=== PATIENT | female | born 1995 | race Caucasian/White ===

== ENCOUNTER 2021-08-02 08:38 | Outpatient (REF) | payer OTHER, SELFPAY ==
[2021-08-02 08:58] LABS: MANUAL DIFF FLAG NO
[2021-08-02 09:11] LABS: Basophils Absolute Auto 0.1 X10*3/uL (0.0-0.2); Basophils Percent Auto 0.8 % (0-2); Eosinophils Absolute Auto 0.1 X10*3/uL (0.0-0.4); Eosinophils Percent Auto 1.9 % (0-4); Hematocrit 32.7 % (37.0-47.0); Hemoglobin 9.6 g/dl (12.0-16.0); Imm Gran Abs Auto 0.02 X10*3/uL (0.00-0.03); Imm Gran Pct Auto 0.3 % (0.0-0.4); Lymphocytes Absolute Auto 1.8 X10*3/uL (1.2-4.9); Lymphocytes Percent Auto 29.7 % (20-40); Mean Corpuscular HGB Conc 29.4 g/dl (31.0-35.0); Mean Corpuscular Hemoglobin 21.3 pg (27.0-33.0); Mean Corpuscular Volume 72.5 fL (80.0-98.0); Mean Platelet Volume 9.8 fL (9.4-12.3); Monocytes Absolute Auto 0.6 X10*3/uL (0.1-1.2); Monocytes Percent Auto 9.4 % (2-11); Neutrophils Absolute Auto 3.6 x10*3/uL (2.0-8.3); Neutrophils Percent Auto 57.9 % (45-73); Platelet Count 333 X10*3/uL (160-400); Red Blood Count 4.51 X10*6/uL (4.20-5.50); Red Cell Distribution Width 16.2 % (11.0-16.0); White Blood Count 6.2 X10*3/uL (4.8-10.8)
[2021-08-02 09:33] LABS: Alanine Aminotransferase 14 U/L (0-31); Albumin Level 4.3 g/dL (3.5-5.0); Alkaline Phosphatase 60 U/L (39-117); Anion Gap 14 (12-20); Aspartate Amino Transferase 15 U/L (5-31); Bilirubin Total 0.9 mg/dL (0.0-1.0); Blood Urea Nitrogen 11 mg/dL (9-16); Calcium 9.7 mg/dL (8.4-10.2); Carbon Dioxide 25 mmol/L (22-29); Chloride 104 mmol/L (96-108); Cholesterol 161 mg/dL; Estimated Glomerular Filt Rate > 60; Glucose Random 93 mg/dL (60-115); HDL Cholesterol 38 mg/dL; LDL Cholesterol Calculated 104 mg/dl; Potassium 4.7 mmol/L (3.3-5.1); Sodium 138 mmol/L (135-145); Total Protein 6.9 g/dL (6.5-8.0); Triglycerides 95 mg/dL
[2021-08-02 09:56] LABS: Thyroid Stimulating Hormone 0.79 uIU/mL (0.32-4.0); Vitamin D 25-OH Total 5.4 ng/mL (>30)
[2021-08-04 10:05] LABS: Folate 14.2 ng/mL (> or = 4.0); Vitamin B12 340 pg/mL (200-900)
== END 2021-08-02 08:39 | disposition home or self-care (01) ==
LOC: HO.LAB 08:38
PROVIDERS: PCP Internal Medicine; Visit Provider Internal Medicine
DX: E66.9 Obesity, unspecified (principal); E78.00 Pure hypercholesterolemia, unspecified
CPT/HCPCS: 36415; 80053; 80061; 82306; 82607; 82746; 84439; 84443; 85025

== ENCOUNTER 2021-10-24 15:48 | Outpatient (REF) | payer OTHER, SELFPAY ==
[2021-10-24 18:18] LABS: CT PCR NOT DETECTED (Not Detect.); NG PCR NOT DETECTED (Not Detect.)
[2021-10-25 10:08] LABS: BV Int Neg Control Negative (Negative); BV Int Pos Control Positive (Positive)
== END 2021-10-24 15:49 | disposition home or self-care (01) ==
LOC: HO.LAB 15:48
PROVIDERS: Visit Provider Advanced Practice Midwife
DX: Z01.419 Encounter for gynecological examination (general) (routine) without abnormal findings (principal); N93.9 Abnormal uterine and vaginal bleeding, unspecified; E66.01 Morbid (severe) obesity due to excess calories; N92.1 Excessive and frequent menstruation with irregular cycle; Z11.3 Encounter for screening for infections with a predominantly sexual mode of transmission
CPT/HCPCS: 87480; 87491; 87510; 87591; 87660; 88142

== ENCOUNTER 2021-12-06 07:40 | Outpatient (REF) | payer OTHER, SELFPAY ==
[2021-12-06 08:44] LABS: Hematocrit 38.4 % (37.0-47.0); Hemoglobin 12.3 g/dl (12.0-16.0); Mean Corpuscular Hemoglobin 25.8 pg (27.0-33.0); Mean Corpuscular Volume 80.7 fL (80.0-98.0); Mean Platelet Volume 10.5 fL (9.4-12.3); Platelet Count 267 X10*3/uL (160-400); Red Blood Count 4.76 X10*6/uL (4.20-5.50); Red Cell Distribution Width 19.8 % (11.0-16.0); White Blood Count 6.4 X10*3/uL (4.8-10.8)
[2021-12-06 09:29] LABS: TSH reflex Free T4 1.08 uIU/mL (0.32-4.0)
[2021-12-08 08:17] LABS: DHEA Sulfate 112 mcg/dL (14-349)
[2021-12-08 10:27] LABS: Follicle Stimulating Hormone 7.5 mIU/mL; Lutenizing Hormone 5.2 mIU/mL; Prolactin 7.7 ng/mL
[2021-12-12 08:56] LABS: Testosterone, Total 21 ng/dL (2-45)
== END 2021-12-06 07:41 | disposition home or self-care (01) ==
LOC: HO.LAB 07:40
PROVIDERS: PCP Internal Medicine; Visit Provider Advanced Practice Midwife
DX: N93.9 Abnormal uterine and vaginal bleeding, unspecified (principal); E66.01 Morbid (severe) obesity due to excess calories; N92.1 Excessive and frequent menstruation with irregular cycle
CPT/HCPCS: 36415; 82627; 83001; 83002; 84146; 84402; 84403; 84443; 85027

== ENCOUNTER 2021-12-11 11:16 | Outpatient (REF) | payer OTHER, SELFPAY ==
--- NOTE | ~2021-12-11 | US_ITS ---
EXAMINATION: US PELVIS CLINICAL INFORMATION: Excessive and frequent menstruation with irregular cycles. COMPARISON: None TECHNIQUE: Ultrasound of the pelvis is performed using both transabdominal and transvaginal transducers along with Doppler. Transvaginal imaging is performed due to inadequate visualization transabdominally, however limited. FINDINGS: UTERUS: The uterus is anteverted and measures 8.7 x 4.1 x 5.8 cm. The double wall endometrial thickness is 1.4 cm. The uterus is smooth in contour and has normal myometrial echogenicity. There is a small hypoechoic lesion in the posterior body of uterus measuring 1.7 x 1.1 x 1.4 cm. There are multiple small nabothian cysts in the cervix. ADNEXA: Both ovaries are visualized. There is normal color flow to the adnexa. There is no ovarian torsion. There is no pelvic ascites or fluid collection. Right ovary measures 4.5 x 3.0 x 2.3 cm and volume 16.2 mL. Left ovary measures 5.2 x 2.5 x 2.9 cm and volume 19.7 mL. There is no free fluid in the cul-de-sac. The transvaginal ultrasound limited due to body habitus. US/US pelvic and transvaginal IMPRESSION: Small nabothian cysts in the cervix. Small solitary fibroid in the posterior body of uterus. Ovaries are unremarkable.
== END 2021-12-11 11:17 | disposition home or self-care (01) ==
LOC: HO.US 11:16
PROVIDERS: Visit Provider Advanced Practice Midwife
DX: N92.1 Excessive and frequent menstruation with irregular cycle (principal); E66.9 Obesity, unspecified
CPT/HCPCS: 76830; 76856

== ENCOUNTER 2021-12-19 16:51 | Outpatient (REF) | payer OTHER, SELFPAY | END 2021-12-19 16:52 | disposition home or self-care (01) | LOC: HO.LNP 16:51 | PROVIDERS: PCP Internal Medicine; Visit Provider Advanced Practice Midwife | DX: N92.1 Excessive and frequent menstruation with irregular cycle (principal); E66.01 Morbid (severe) obesity due to excess calories; D21.9 Benign neoplasm of connective and other soft tissue, unspecified; Z83.3 Family history of diabetes mellitus; Z79.899 Other long term (current) drug therapy; Z32.02 Encounter for pregnancy test, result negative; Z68.42 Body mass index [BMI] 45.0-49.9, adult | CPT/HCPCS: 58100; 81025; 88305 ==

== ENCOUNTER 2022-04-21 08:55 | Outpatient (REF) | payer OTHER, SELFPAY | END 2022-04-21 08:56 | disposition home or self-care (01) | LOC: HO.LNP 08:55 | PROVIDERS: PCP Internal Medicine; Visit Provider Advanced Practice Midwife | DX: Z12.4 Encounter for screening for malignant neoplasm of cervix (principal); R87.615 Unsatisfactory cytologic smear of cervix | CPT/HCPCS: 88142 ==

== ENCOUNTER 2022-10-26 08:56 | Outpatient (AMB) | payer OTHER, SELFPAY ==
[2022-10-26 08:58] VITALS: BP 150/90; BMI 45.0
--- NOTE | 2022-10-26 08:58 | A.OFFVIS_ITS ---
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: No Allergies No Known Allergies Allergy (Verified 10/26/22 09:02) Medication List - Last Reconciled 10/26/22 by Stephany Hoff CNM ascorbate calcium (vitamin C) 500 mg PO DAILY cholecalciferol (vitamin D3) 125 mcg PO DAILY desog-e.estradiol/e.estradiol 0.15-0.02 mgx21 /0.01 mg x 5 1 tab PO DAILY ferrous gluconate 236 mg PO DAILY Is last menstrual period known: Yes Last menstrual period: 10/23/22 Post menopausal: No HPI Pill Check HPI Details Patient is here for a pill check she has been taking the pills to deal with the menorrhagia and for the most part it has been contributing to her having very regular periods she is on a Wednesday start with her cycles and she typically gets her periods on a although this last week it started on Wednesday she is still on her period now they last about 5 days. She is not having any symptoms of elevated blood pressure however her blood pressure is elevated today 140/[address] Spaulding most recently in July and her pressure was in the 120s over 88. She currently does not have the diagnosis of hypertension however she has had elevated blood pressures. She would like to stay on the pills to help manage her menorrhagia that she is has had in the past. 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 She has stairs in her house but that is really all she had a gym membership pre COVID but COVID ended that money is a factor as well. She also does not will do well in the heat and her schedules very tight in the morning and difficult to allow for morning exercise as well. She is not sexually active but she needs the pills to help manage her periods. [facility] Medical History Cervical cancer screening Family History Mother No problems noted. Father Heart attack Sister No problems noted. Paternal Aunt Endometriosis Maternal Uncle Colon cancer Social History Housing: Condominium Alcohol intake: current Patient Tobacco Use Status: Never used Tobacco e-Cigarette/Vaping Use: Never Used Second Hand Smoke Exposure: No service: No Current occupational status: employed Current occupational exposures/hazards: No Cognitive needs: No Hearing needs: No Vision needs: Yes Female Reproductive History Menstrual Age of Menarche: 12 Duration of menses: 3-5 days Date of last menstrual period: 10/23/22 control method: pills Total pregnancies: 0 Date of last pap smear: 04/21/22 (negative) Physical Exam Vital Signs: Last Vital Signs BP 150/90 H 10/26/22 08:58 BMI result Body Mass Index 45.0 Assessment & Plan Assessment & Plan (1) Elevated BP without diagnosis of hypertension: Comment: to check at home and w pcc. rtc 6m Code(s): R03.0 - Elevated blood-pressure reading, without diagnosis of hypertension (2) Fibroids: Comment: 1 small one Code(s): D21.9 - Benign neoplasm of connective and other soft tissue, unspecified (3) Family history of diabetes mellitus (DM): Code(s): Z83.3 - Family history of diabetes mellitus (4) Obesity, morbid, BMI 40.0-49.9: Comment: 04/21/22-making gradual changes, has lost some weight Code(s): E66.01 - Morbid (severe) obesity due to excess calories (5) Menometrorrhagia: Comment: emb- no atypia, managing well on ocps 04/21/22 Code(s): N92.1 - Excessive and frequent menstruation with irregular cycle (6) Counseling for control, oral contraceptives: Comment: Plus counseling for use of Mirena, secondary to elevated blood pressure Code(s): Z30.09 - Encounter for other general counseling and advice on contraception Plan Discussed all of these issues again that have been addressed at previous visits discussed the interplay of the obesity and the increased risk for the hypertension which she is definitely dealing with. Discussed that she does need something to help protect from menorrhagia so that she does not repeat the scenario that her here in the 1st place however long-term use of the control pills may not be the best for her but more importantly it is really important for her to sit start actively losing weight discussed during this visit strategies that might help to add in more exercise and I offered to place another weight management referral for her and she excepted this as the previous referral was a year ago. She had been told there was a waiting list at that time she is reluctant to do surgery and she said there was a waiting list for the medical part. She is also reluctant to do anything very invasive but I did explain about the Mirena versus the Kyleena and how it may at least help with the menorrhagia piece of it, and can be used for women with elevated blood pressures and is often used for menorrhagia in the face of obesity as well. If she decided to try it either 1 but probably a Mirena it would be best to inserted on the heaviest day of her cycle which typically for her is day 3. I also discussed use of misoprostol for 4-6 hours vaginally prior to insertion and I explained the rationale for both of these issues with timing to visit facilitate the cramping that happens and the slight opening of the cervix enough to make the insertion less traumatic. Much of the visit was spent discussing ways that might be accessible to her. Today is her birthday discussed starting a new. She is going to go to the mall today suggested a very brisk walk around the mall before she settles into window shopping and then she is going to visit a friend. cont ocps for now. she will check her bp, and we'll see her in 3 m unless she comes for mirena / kyleena w menses. Reviewed the issues of hypertension with control pills and the issues of hypertension in her health overall and that this is really the time to try to d eal with this. Orders: Referrals Medical Weight Management Referral D21.9 - Benign neoplasm of connective and other soft tissue, unspecified, E66.01 - Morbid (severe) obesity due to excess calories, N92.1 - Excessive and frequent menstruation with irregular cycle, R03.0 - Elevated blood-pressure reading, without diagnosis of hypertension, Z30.09 - Encounter for other general counseling and advice on contraception, Z83.3 - Family history of diabetes mellitus Coding Level of Care Code Est Pt Level 3 (05397) Diagnoses Elevated BP without diagnosis of hypertension R03.0 Fibroids D21.9 Family history of diabetes mellitus (DM) Z83.3 Obesity, morbid, BMI 40.0-49.9 E66.01 Menometrorrhagia N92.1 Counseling for control, oral contraceptives Z30.09
== END 2022-10-26 09:53 | disposition home or self-care (01) ==
LOC: HO.HWS 08:56
PROVIDERS: PCP Internal Medicine; Visit Provider Advanced Practice Midwife
DX: R03.0 Elevated blood-pressure reading, without diagnosis of hypertension (principal); D21.9 Benign neoplasm of connective and other soft tissue, unspecified; Z83.3 Family history of diabetes mellitus; E66.01 Morbid (severe) obesity due to excess calories; N92.1 Excessive and frequent menstruation with irregular cycle; Z30.09 Encounter for other general counseling and advice on contraception
CPT/HCPCS: 99213

== ENCOUNTER → 2022-10-26 08:56 | Outpatient (BNVA) | payer OTHER, SELFPAY | PROVIDERS: PCP Internal Medicine; Visit Provider Advanced Practice Midwife ==

== ENCOUNTER 2023-02-23 14:21 | Outpatient (AMB) | payer OTHER, SELFPAY ==
--- NOTE | 2023-02-23 14:28 | A.OFFVIS_ITS ---
Intake Vital Signs 02/23/23 14:29 Height 5 ft 8 in Weight 302 lb BMI 45.9 BP 126/82 Intake Visit Reasons: 3 month pill check/bp check [employer] Required: No Allergies No Known Allergies Allergy (Verified 02/23/23 14:29) Medication List - Last Reconciled 02/23/23 by Stephany Hoff CNM ascorbate calcium (vitamin C) 500 mg PO DAILY cholecalciferol (vitamin D3) 125 mcg PO DAILY desog-e.estradiol/e.estradiol 0.15-0.02 mgx21 /0.01 mg x 5 1 tab PO DAILY ferrous gluconate 236 mg PO DAILY Is last menstrual period known: Yes Last menstrual period: 02/12/23 Post menopausal: No HPI 3 month pill check/bp check HPI Details Patient is here for blood pressure check and discussion about continuing on the control pills she is not interested in a Mirena at this time she has been keeping an eye on her blood pressure and it has been up and down but it is good today. She is following up with her primary care provider as well and has her next visit with him in May. She has been referred to the weight management program but every time she calls she was told that there was still a waiting list for people interested in the medical management but not particularly interested in the surgical management. She is finding it challenging to get to the gym more than once a week and she is really working hard on eating but that is challenging because she and her mother share food in the house and it is challenging. Her father had diabetes and high blood pressure. Her periods are under good control now with the control pills she denies any negative side effects to the pills. She is worried about bad things happening with an IUD if she were to get 1 so she is not interested at this time. [facility] Medical History Cervical cancer screening Family History Mother No problems noted. Father Heart attack Sister No problems noted. Paternal Aunt Endometriosis Maternal Uncle Colon cancer Housing: Condominium Alcohol intake: current Patient Tobacco Use Status: Never used Tobacco e-Cigarette/Vaping Use: Never Used Second Hand Smoke Exposure: No service: No Current occupational status: employed Current occupational exposures/hazards: No Cognitive needs: No Hearing needs: No Vision needs: Yes Female Reproductive History Menstrual Age of Menarche: 12 Date of last menstrual period: 02/12/23 control method: pills Date of last pap smear: 04/21/22 (negative) Physical Exam Vital Signs: Last Vital Signs BP 126/82 02/23/23 14:29 BMI result Body Mass Index 45.9 Assessment & Plan Assessment & Plan (1) Counseling for control, oral contraceptives: Comment: Plus counseling for use of Mirena, secondary to elevated blood pressure Code(s): Z30.09 - Encounter for other general counseling and advice on contraception (2) Menometrorrhagia: Comment: emb- no atypia, managing well on ocps 04/21/22 Code(s): N92.1 - Excessive and frequent menstruation with irregular cycle (3) Obesity, morbid, BMI 40.0-49.9: Comment: 04/21/22-making gradual changes, has lost some weight Code(s): E66.01 - Morbid (severe) obesity due to excess calories (4) Elevated BP without diagnosis of hypertension: Comment: to check at home and w pcc. rtc 6m Code(s): R03.0 - Elevated blood-pressure reading, without diagnosis of hypertension Plan Patient is here for blood pressure check and discussion about continuing on the control pills she is not interested in a Mirena at this time she has been keeping an eye on her blood pressure and it has been up and down but it is good today. She is following up with her primary care provider as well and has her next visit with him in May. She has been referred to the weight management program but every time she calls she was told that there was still a waiting list for people interested in the medical management but not particularly interested in the surgical management. She is finding it challenging to get to the gym more than once a week and she is really working hard on eating but that is challenging because she and her mother share food in the house and it is challenging. Her father had diabetes and high blood pressure. Her periods are under good control now with the control pills she denies any negative side effects to the pills. She is worried about bad things happening with an IUD if she were to get 1 so she is not interested at this time. Reviewed what she can do to improve her efforts at weight loss and make herself her priority and increase her visits to the gym if at all possible. I will refill her pills for 1 more year and she promises to be in touch if her blood pressure is elevated and I did discuss that Mirena would be recommended to help control menorrhagia if she were not able to be on the pills I would not recommend Depo-Provera or the a Nexplanon because they come with increased weight gain side effects discussed the hormonal effects of them. Discussed considering reaching out to the weight management program again and she is going to head over there now and see if there still is a waiting list. We will see her in 1 year if not before. Medications: Refilled desog-e.estradiol/e.estradiol 0.15-0.02 mgx21 /0.01 mg x 5 1 tab PO DAILY 84 tabs 4RF Coding Level of Care Code Est Pt Level 3 (13101) Diagnoses Counseling for control, oral contraceptives Z30.09 Menometrorrhagia N92.1 Obesity, morbid, BMI 40.0-49.9 E66.01 Elevated BP without diagnosis of hypertension R03.0
[2023-02-23 14:29] VITALS: BP 126/82; BMI 45.9
== END 2023-02-23 14:55 | disposition home or self-care (01) ==
LOC: HO.HWS 14:21
PROVIDERS: PCP Internal Medicine; Visit Provider Advanced Practice Midwife
DX: Z30.09 Encounter for other general counseling and advice on contraception (principal); N92.1 Excessive and frequent menstruation with irregular cycle; E66.01 Morbid (severe) obesity due to excess calories; R03.0 Elevated blood-pressure reading, without diagnosis of hypertension
CPT/HCPCS: 99213

== ENCOUNTER → 2023-02-23 14:21 | Outpatient (BNVA) | payer OTHER, SELFPAY | PROVIDERS: PCP Internal Medicine; Visit Provider Advanced Practice Midwife ==

== ENCOUNTER 2023-05-20 14:58 | Outpatient (AMB) | payer OTHER, SELFPAY ==
[2023-05-20 15:19] VITALS: BP 132/88; PULSE 72; O2SAT 98; BMI 45.8
--- NOTE | 2023-05-20 15:19 | A.OFFPC_ITS ---
Vital Signs 05/20/23 15:19 05/20/23 15:53 Height 5 ft 8 in Weight 136.531 kg BMI 45.8 BP 132/88 130/80 Blood Pressure Location Lt brachial Lt brachial Position Sitting Sitting Pulse 72 Pulse Source Pulse Oximeter Pulse Oximetry (%) 98 Oxygen Delivery Method Room Air Intake Visit Reasons: Annual Exam Pacu Nurse: Not Required per policy Accompanied by: Self / Same As Patient Allergies No Known Allergies Allergy (Verified 05/20/23 15:19) Medication List - Last Reconciled 05/20/23 by Ady Cisneros MD ascorbate calcium (vitamin C) 500 mg PO DAILY cholecalciferol (vitamin D3) 125 mcg PO DAILY desog-e.estradiol/e.estradiol 0.15-0.02 mgx21 /0.01 mg x 5 1 tab PO DAILY ferrous gluconate 236 mg PO DAILY Tobacco use date assessed: 05/20/23 Dental Screening Dental Screen Date: 05/20/23 Did you have a dental visit in the last 12 months?: Yes Did you have a dental problem in the last 6 months where you did not have access to dental care?: No Was dental information given to patient?: Patient has dentist HPI Annual Exam HPI Details 27-year-old morbidly obese female with g eneralized anxiety disorder and menometrorrhagia last seen in July 2022 coming in for physical exam. Patient was also noted to have an elevated blood pressure. Patient has been seeing OB Gynecology placed o control pill. [facility] Medical History Cervical cancer screening Surgical History (Updated 05/20/23 @ 15:51 by Ady Cisneros MD) [place] teeth extracted Family History Mother No problems noted. Father Heart attack Sister No problems noted. Paternal Aunt Endometriosis Maternal Uncle Colon cancer Social History (Updated 05/20/23 @ 15:55 by Ady Cisneros MD) Housing: Condominium Alcohol intake: current Comment: once Q 6 month 1 glass Patient Tobacco Use Status: Never used Tobacco Years Smoked: marijuana daily e-Cigarette/Vaping Use: Never Used Second Hand Smoke Exposure: No service: No Current occupational status: employed Current occupational exposures/hazards: No Cognitive needs: No Hearing needs: No Vision needs: Yes Female Reproductive History Menstrual Age of Menarche: 12 Questionnaire PHQ-9 Over the last 2 weeks, how often have you been bothered by any of the following problems? 1. Little interest or pleasure in doing things: nearly every day 2. Feeling down, depressed, or hopeless: nearly every day 3. Trouble falling or staying asleep, or sleeping too much: several days (staying asleep ) 4. Feeling tired or having little energy: several days 5. Poor appetite or overeating: not at all 6. Feeling bad about yourself - or that you are a failure or have let yourself or your family down: several days 7. Trouble concentrating on things, such as reading the newspaper or watching television: several days 8. Moving or speaking so slowly that other people could have noticed. Or the opposite - being so fidgety or restless that you have been moving around a lot more than usual: not at all 9. Thoughts that you would be better off or of hurting yourself in some way: several days Total score: 11 Depression Screening Interpretation: Positive Depression Screening Done: Yes Source: Developed by Drs. Chente Dixon, Nadia Trevino, Adair Rosas and colleagues, with an educational carlos from [employer]. Thrive Questionnaire Date Thrive assessed: 05/20/23 I am a: Patient What is your living situation today?: I have a steady place to live Within the past 12 months, did the food you bought not last and you didn't have the money to get more?: Never true Within the past 12 months, did you worry whether your food would run out before you got money to buy more?: Never true Do you have trouble paying for medicines?: No Do you have trouble getting transportation to medical appointments?: No Do you have trouble paying your heating and electricity bill?: No Do you have trouble taking care of your child, family member or friend?: No Do you have trouble with day-to-day activities such as bathing, preparing meals, shopping, managing finances, etc.?: No Are you currently unemployed and looking for a job?: No Are you interested in more education?: No Please select the resources that you would like help with: None THRIVE Score: 0 AUDIT C Alcohol Use Questionnaire (AUDIT-C) 1. How often do you have a drink containing alcohol?: Monthly or less 2. How many drinks containing alcohol do you have on a typical day when you are drinking?: 1 or 2 3. How often do you have six or more drinks on one occasion?: Never Total Score: 1 ASTER-7 AMB Questionnaire ASTER-7 Date ASTER - 7 assessed: 05/20/23 Feeling nervous, anxious, or on edge: 0 = Not at all Not being able to stop or control worryin = Not at all Worrying too much about different things: 0 = Not at all Trouble relaxin = Not at all Being so restless that it is hard to sit still: 0 = Not at all Becoming easily annoyed or irritable: 0 = Not at all Feeling afraid as if something awful might happen: 0 = Not at all Total ASTER-7 score (0-4 normal; 5-9 mild; 10-14 moderate; 15-21 severe): 0 Source: Developed by Drs. Chente Dixon, Nadia Trevino, Adair Rosas and colleagues, with an educational carlos from [employer]. Review of Systems Const Denies poor appetite and Denies weakness Eyes Denies no additional complaints ENT Reports Normal hearing present, Denies dizziness, Denies nasal congestion, Denies tinnitus and Denies sore throat Card Denies chest pain, Denies syncope, Denies rapid heart rate and Denies dyspnea Resp Denies cough and Denies dyspnea GI Denies change in stool character, Reports constipation, Denies diarrhea, Denies nausea and Denies vomiting Denies urinary frequency, Denies difficulty voiding and Denies dysuria Neuro Reports Normal hearing present, Denies confusion, Denies dizziness, Denies syncope and Denies weakness Psych Denies confusion Physical exam (Primary Care) Vital Signs: Last Vital Signs Pulse 72 05/20/23 15:19 BP 130/80 05/20/23 15:53 Pulse Ox 98 05/20/23 15:19 Oxygen Delivery Method Room Air 05/20/23 15:19 BMI result Body Mass Index 45.8 Tobacco/Smoking Status: Tobacco use Status Tobacco use date assessed 05/20/23 05/20/23 15:20 Patient Tobacco Use Status Never used Tobacco 05/20/23 15:55 e-Cigarette/Vaping Use Never Used 05/20/23 15:55 PHQ-9: PHQ-9 Score PHQ-9: Total score 11 05/20/23 15:49 Depression Screening Interpretation: Positive Thrive Assessment: Date of Thrive Assessment Date Thrive assessed 05/20/23 05/20/23 15:20 Const General: No confusion Orientation/consciousness: No confusion HENMT Head: Yes normocephalic Ears: external ears normal and TM's normal bilaterally Face and sinus: Yes normal facial exam Mouth: moist mucous membranes Throat: Yes tonsils normal Eyes Conjunctivae: conjunctivae normal Pupils: Equal, round and reactive pupils present and Pupil accommodation reflex normal Direct Ophthalmoscopy: normal light reflex Neck Neck: No lymphadenopathy Thyroid: Thyroid normal Chest Chest palpation & inspection: normal inspection of the chest Resp Effort & Inspection: normal respiratory effort and no audible wheezes Auscultation: clear to auscultation bilaterally, no crackles, no wheezes and lung sounds not diminished Cardio Rate: regular rate Rhythm: regular rhythm Peripheral pulses: radial pulses present and dorsalis pedis present GI Palpation (GI): no masses Auscultation: normal bowel sounds and normoactive bowel sounds Rectal Exam - Female: deferred Skin General skin exam: no rashes or lesions noted Rashes: no rashes Neuro General: No confusion Cranial nerves: Yes Equal, round and reactive pupils present and Yes Normal hearing present Cognition (Neuro): normal cognition Gait exam (Neuro): Normal gait present Motor exam (neuro): 5/5 motor strength present throughout Deep tendon reflexes (DTR's): Right brachioradialis reflex intensity grade: 2+, Left brachioradialis reflex intensity grade: 2+, Right patellar reflex intensity grade: 2+ and Left patellar reflex intensity grade: 2+ Extrem General: No edema Immunizations Boostrix Tdap 2.5 Lf unit-8 mcg-5 Lf/0.5 mL intramuscular syringe Performing Provider: Ady Cisneros MD [facility] Administered by: Perla Mulligan CMA on 05/20/23 16:05 Dose Route Admin Location Dispensed Lot Number Expiration Date [employer] Program Manager 0.5 mL IM Left Deltoid 0.5 mL [id number] 07/29/25 [id number] Impraise VIS Given Date VIS Provided VIS Publication Date 05/20/23 Single Vaccine 20 Eligibility Eligibility Date Funding Source Not [facility] Eligible 05/20/23 Private Assessment and Plan Assessment & Plan (1) Annual physical exam: Code(s): Z00.00 - Encounter for general adult medical examination without abnormal findings (2) Obesity: Code(s): E66.9 - Obesity, unspecified Plan: Diet and exercise (3) Menometrorrhagia: Comment: emb- no atypia, managing well on ocps 04/21/22 Code(s): N92.1 - Excessive and frequent menstruation with irregular cycle Plan: 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
[2023-05-20 15:53] VITALS: BP 130/80
== END 2023-05-20 16:11 | disposition home or self-care (01) ==
PROVIDERS: Visit Provider Internal Medicine
DX: Z00.00 Encounter for general adult medical examination without abnormal findings (principal); E66.9 Obesity, unspecified; Z68.42 Body mass index [BMI] 45.0-49.9, adult; N92.1 Excessive and frequent menstruation with irregular cycle; Z23 Encounter for immunization; F41.1 Generalized anxiety disorder
CPT/HCPCS: 90471; 90715; 99395

== ENCOUNTER 2023-06-02 16:12 | Outpatient (AMB) | payer OTHER, SELFPAY ==
[2023-06-02 16:17] VITALS: BP 132/80; PULSE 71; TEMP 37.3; O2SAT 98; BMI 45.8
--- NOTE | 2023-06-02 16:17 | AM.OFFWIN_ITS ---
Intake Vital Signs 06/02/23 16:17 Height 5 ft 8 in Weight 301 lb BMI 45.8 BP 132/80 Blood Pressure Location Lt brachial Position Sitting Pulse 71 Pulse Source Pulse Oximeter Temp 99.2 F Temp Source Oral Pulse Oximetry (%) 98 Oxygen Delivery Method Room Air Intake Visit Reasons: EST/nausea past week (lobby masked) Intake Note: pt is here for c.o nausea for 1 week Patient Tobacco Use Status: Never used Tobacco Allergies No Known Allergies Allergy (Verified 06/02/23 16:18) Do you need a note to return to daycare/school/sports/work: Yes HPI HPI Comments History of Present Illness Details 27 y/o female patient who presents to [facility] in clinic with c/o Nausea and Diarrhea x 1 week. Symptoms have been getiing worse in the past few days. Denies nausea, fevers or chills. Denies any diet changes. Denies any recent sick contact. She has been using Pepto-bismal OTC. [facility] Medical History Cervical cancer screening Surgical History (Updated 05/20/23 @ 15:51 by Ady Cisneros MD) [place] teeth extracted Family History Mother No problems noted. Father Heart attack Sister No problems noted. Paternal Aunt Endometriosis Maternal Uncle Colon cancer Social History (Updated 05/20/23 @ 15:55 by Ady Cisneros MD) Housing: Condominium Alcohol intake: current Comment: once Q 6 month 1 glass Patient Tobacco Use Status: Never used Tobacco Years Smoked: marijuana daily e-Cigarette/Vaping Use: Never Used Second Hand Smoke Exposure: No service: No Current occupational status: employed Current occupational exposures/hazards: No Cognitive needs: No Hearing needs: No Vision needs: Yes Female Reproductive History Menstrual Age of Menarche: 12 Review of Systems Const All systems reviewed & are unremarkable except as noted in HPI and below Physical Exam Vital Signs: Last Vital Signs Temp 99.2 F 06/02/23 16:17 Pulse 71 06/02/23 16:17 BP 132/80 06/02/23 16:17 Pulse Ox 98 06/02/23 16:17 Oxygen Delivery Method Room Air 06/02/23 16:17 BMI result Body Mass Index 45.8 Const General: comfortable and no acute distress Orientation/consciousness: patient oriented x3 GI Inspection: Yes normal to inspection and Yes obesity Palpation (GI): Soft to palpation Auscultation: normal bowel sounds Rectal Exam - Female: deferred Neuro General: patient oriented x3 and gait normal Assessment & Plan Assessment & Plan (1) Nausea: Code(s): R11.0 - Nausea Plan: - Saltine Crackers - Gingerale - BLAND diet (2) Diarrhea: Code(s): R19.7 - Diarrhea, unspecified Qualifiers: Diarrhea type: unspecified type Qualified Code(s): R19.7 - Diarrhea, unspecified Plan: - Avoid spicy foods, greasy and oily - BLAND diet - OTC IMODIUM Medications: New ondansetron 8 mg PO Q8H 30 tabs 0RF R11.0 - Nausea metoclopramide HCl (Reglan) 10 mg PO Q6H 7 days 28 tabs 0RF R11.0 - Nausea, R19.7 - Diarrhea, unspecified Coding Level of Care Code Est Pt Level 3 (84453) Diagnoses Nausea R11.0 Diarrhea, unspecified type R19.7 Diarrhea type: unspecified type Time Spent (min) 15
== END 2023-06-02 17:07 | disposition home or self-care (01) ==
PROVIDERS: PCP Internal Medicine; Visit Provider Nurse Practitioner Family
DX: R11.0 Nausea (principal); R19.7 Diarrhea, unspecified
CPT/HCPCS: 99213

== ENCOUNTER 2023-06-17 11:54 | Outpatient (AMB) | payer OTHER, SELFPAY ==
--- NOTE | 2023-06-17 12:00 | MHC.OFFWIV ---
Intake Vital Signs 06/17/23 12:01 Height 5 ft 8 in Weight 300 lb BMI 45.6 BP 120/78 Blood Pressure Location Lt brachial Position Sitting Pulse 83 Pulse Source Pulse Oximeter Temp 97.0 F Temp Source Temporal Artery Scan Pulse Oximetry (%) 98 Oxygen Delivery Method Room Air Intake Visit Reasons: EP Sore throat Intake Note: pt is here today for sore throat started wednesday Patient Tobacco Use Status: Never used Tobacco Allergies No Known Allergies Allergy (Verified 06/17/23 12:01) Do you need a note to return to daycare/school/sports/work: Yes HPI EP Sore throat HPI Details This is a 27 year old female patient who presents today with a 2-3 day history of sore throat. Denies any fever, chills, headache or bodyache. Has used some honey cough drops. No known exposure to strep. Reports a slight cough but denies any shortness of breath. [facility] Medical History Cervical cancer screening Surgical History [place] teeth extracted Family History Mother No problems noted. Father Heart attack Sister No problems noted. Paternal Aunt Endometriosis Maternal Uncle Colon cancer Social History Housing: Condominium Alcohol intake: current Comment: once Q 6 month 1 glass Patient Tobacco Use Status: Never used Tobacco Years Smoked: marijuana daily e-Cigarette/Vaping Use: Never Used Second Hand Smoke Exposure: No service: No Current occupational status: employed Current occupational exposures/hazards: No Cognitive needs: No Hearing needs: No Vision needs: Yes Female Reproductive History Menstrual Age of Menarche: 12 Review of Systems Const All systems reviewed & are unremarkable except as noted in HPI and below Physical Exam Vital Signs: Last Vital Signs Temp 97.0 F 06/17/23 12:01 Pulse 83 06/17/23 12:01 BP 120/78 06/17/23 12:01 Pulse Ox 98 06/17/23 12:01 Oxygen Delivery Method Room Air 06/17/23 12:01 BMI result Body Mass Index 45.6 Const General: cooperative and healthy appearing HEENT Head: Yes normal to inspection and Yes normocephalic Ears: hearing grossly normal bilaterally General nose exam: Normal external nose present, Normal nares present and Normal nasal mucous membranes and turbinates present Face and sinus: Yes normal facial exam Throat: Yes posterior oropharynx abnormal (mild erythema, no exudate) Neck Neck: Yes no lymphadenopathy Resp Effort & Inspection: normal respiratory effort Auscultation: clear to auscultation bilaterally Cardio Palpation: normal PMI Rate: regular rate Rhythm: regular rhythm Skin General skin exam: no rashes or lesions noted Extrem General: Yes capillary refill normal and Yes no clubbing, cyanosis or edema Psych Appearance: grossly normal Mental Status: mental status grossly normal Speech and movement: Normal speech and movement present Results AMB Rapid Strep AMB Rapid Strep Negative Last Edit by Gordon Shannon on 06/17/23 12:28 Assessment & Plan Assessment & Plan (1) Pharyngitis: Code(s): J02.9 - Acute pharyngitis, unspecified Qualifiers: Pharyngitis/tonsillitis etiology: unspecified etiology Qualified Code(s): J02.9 - Acute pharyngitis, unspecified Plan: Symptoms consistent with viral pharyngitis. Rapid strep negative. Advised conservative measures with increased hydration, warm saltwater gargles, lozenges, Tylenol/Motrin as needed. Work note provided. If she does not improve with treatment or if symptoms worsen/new symptoms develop, she can return to the clinic for further evaluation. Patient agrees to plan. Coding Level of Care Code Est Pt Level 3 (58278) Diagnoses Pharyngitis, unspecified etiology J02.9 Pharyngitis/tonsillitis etiology: unspecified etiology
[2023-06-17 12:01] VITALS: BP 120/78; PULSE 83; TEMP 36.1; O2SAT 98; BMI 45.6
== END 2023-06-17 12:46 | disposition home or self-care (01) ==
PROVIDERS: PCP Internal Medicine; Visit Provider Nurse Practitioner Family
DX: J02.9 Acute pharyngitis, unspecified (principal)
CPT/HCPCS: 87880; 99213

== ENCOUNTER 2023-06-19 09:15 | Outpatient (AMB) | payer OTHER, SELFPAY ==
--- NOTE | 2023-06-19 09:22 | MHC.OFFWIV ---
Intake Vital Signs 06/19/23 09:25 Height 5 ft 8 in Weight 300 lb BMI 45.6 BP 122/74 Blood Pressure Location Lt brachial Position Sitting Pulse 87 Pulse Source Pulse Oximeter Temp 97.8 F Temp Source Oral Pulse Oximetry (%) 98 Intake Visit Reasons: EP Cough, producing phlegm Intake Note: pt s here for c/o cough, producing phlem not getting better Patient Tobacco Use Status: Never used Tobacco Allergies No Known Allergies Allergy (Verified 06/19/23 09:27) Do you need a note to return to daycare/school/sports/work: No HPI HPI Comments History of Present Illness Details 27-year-old female returns to the walk-in clinic for concern of sore throat. Received negative strep 2 days ago presenting with similar symptoms requesting re-evaluation. [facility] Medical History Cervical cancer screening Surgical History [place] teeth extracted Family History Mother No problems noted. Father Heart attack Sister No problems noted. Paternal Aunt Endometriosis Maternal Uncle Colon cancer Social History Housing: Condominium Alcohol intake: current Comment: once Q 6 month 1 glass Patient Tobacco Use Status: Never used Tobacco Years Smoked: marijuana daily e-Cigarette/Vaping Use: Never Used Second Hand Smoke Exposure: No service: No Current occupational status: employed Current occupational exposures/hazards: No Cognitive needs: No Hearing needs: No Vision needs: Yes Female Reproductive History Menstrual Age of Menarche: 12 Physical Exam Vital Signs: Last Vital Signs Temp 97.8 F 06/19/23 09:25 Pulse 87 06/19/23 09:25 BP 122/74 06/19/23 09:25 Pulse Ox 98 06/19/23 09:25 BMI result Body Mass Index 45.6 Const General: cooperative, healthy appearing, no acute distress and alert Orientation/consciousness: patient oriented x3 Limitations: no limitations HEENT Other: Erythema in the posterior pharynx. No exudates tonsils 1+ bilaterally. Head: Yes normal to inspection Ears: hearing grossly normal bilaterally General nose exam: Normal external nose present Resp Effort & Inspection: normal respiratory effort and able to speak in complete sentences Cardio Rate: regular rate Skin General skin exam: no rashes or lesions noted Neuro General: patient oriented x3 Extrem General: Yes normal to inspection Assessment & Plan Assessment & Plan (1) Pharyngitis: Code(s): J02.9 - Acute pharyngitis, unspecified Qualifiers: Pharyngitis/tonsillitis etiology: unspecified etiology Qualified Code(s): J02.9 - Acute pharyngitis, unspecified Plan: Suspect viral pharyngitis based on physical examination and symptoms. Will give a single dose of dexamethasone recommended recommend Motrin treatment and symptomatic care. Medications: New dexamethasone 4 mg PO DAILY 1 tab 0RF dexamethasone 6 mg PO DAILY 1 tab 0RF Patient Instructions: Your rapid strep test is negative, In the meantime soothing relief is often obtained from the following: a cup of tea with honey a cup of tea with lemon hot chocolate Chicken bullion or soup warm salt water gargles or baking soda. Mix 1 teaspoon of salt with 1 cup of water gargle for 5 to 10 seconds and then spit and repeat as needed. You can also do this with 1 teaspoon of baking soda. There are many [id number] medications to help soothe a sore throat I would suggest: CEPACOL LOZENGES CHLORASEPTIC THROAT SPRAY. There are many others.. Coding Level of Care Code Est Pt Level 2 (06072) Diagnoses Pharyngitis, unspecified etiology J02.9 Pharyngitis/tonsillitis etiology: unspecified etiology
[2023-06-19 09:25] VITALS: BP 122/74; PULSE 87; TEMP 36.6; O2SAT 98; BMI 45.6
== END 2023-06-19 10:08 | disposition home or self-care (01) ==
PROVIDERS: PCP Internal Medicine; Visit Provider Physician Assistant
DX: J02.9 Acute pharyngitis, unspecified (principal)
CPT/HCPCS: 99051; 99212

== ENCOUNTER 2024-03-06 | Outpatient (REF) | payer OTHER, SELFPAY ==
[2024-03-07 11:38] LABS: Bacterial Vaginosis PCR NEGATIVE (Negative); Candida Group PCR NOT DETECTED (Not Detect); Candida glab krusei PCR NOT DETECTED (Not Detect); Trichomonas vaginalis PCR NOT DETECTED (Not Detect)
[2024-03-07 12:06] LABS: CT PCR NOT DETECTED (Not Detect.); NG PCR NOT DETECTED (Not Detect.)
== END 2024-03-06 00:01 | disposition home or self-care (01) ==
LOC: HO.LNP
PROVIDERS: Visit Provider Advanced Practice Midwife
DX: N89.8 Other specified noninflammatory disorders of vagina (principal)
CPT/HCPCS: 0352U; 87491; 87591

== ENCOUNTER 2024-03-06 15:16 | Outpatient (REF) | payer OTHER, SELFPAY | END 2024-03-06 15:17 | disposition home or self-care (01) | LOC: HO.LAB 15:16 | PROVIDERS: PCP Internal Medicine; Visit Provider Advanced Practice Midwife | DX: Z13.89 Encounter for screening for other disorder (principal) ==

== ENCOUNTER 2024-03-06 15:16 | Outpatient (AMB) | payer OTHER, SELFPAY ==
[2024-03-06 15:23] VITALS: BP 122/72; BMI 45.9
--- NOTE | 2024-03-06 15:23 | MHC.OFFVIS ---
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 Product Inspection Coordinator Required: No Information Interpreted: clinical only Transportation Maintenance Supervisor: Transportation Maintenance Supervisor Present Allergies No Known Allergies Allergy (Verified 03/06/24 15:23) Medication List - Last Reconciled 03/06/24 by Stephany Hoff CNM ascorbate calcium (vitamin C) 500 mg PO DAILY cholecalciferol (vitamin D3) 125 mcg PO DAILY desog-e.estradiol/e.estradiol 0.15-0.02 mgx21 /0.01 mg x 5 1 tab PO DAILY ferrous gluconate 236 mg PO DAILY Is last menstrual period known: Yes Last menstrual period: 02/11/24 HPI HPI OXYGEN THERAPIST 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 She has feels she is doing well she is working on making some changes improve her health in work on weight loss but it has been challenging and she has been working lot hours job and she is now considering looking for another job. She is hoping that she will have more time to exercise work out she adjust so scheduled. 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 She likes being the pills it is keeping her periods regular she did have once in January with her boyfriend from [place], she is not particularly worried about STIs but is open to testing today her Pap smear was negative last year. She wants to stay on the control pills, her blood pressure within normal limits today [facility] Medical History Cervical cancer screening Surgical History [place] teeth extracted Family History Mother No problems noted. Father Heart attack Sister No problems noted. Paternal Aunt Endometriosis Maternal Uncle Colon cancer Social History Housing: Condominium Alcohol intake: current Comment: once Q 6 month 1 glass Patient Tobacco Use Status: Never used Tobacco Years Smoked: marijuana daily e-Cigarette/Vaping Use: Never Used Second Hand Smoke Exposure: No service: No Current occupational status: employed Current occupational exposures/hazards: No Cognitive needs: No Hearing needs: No Vision needs: Yes Female Reproductive History Menstrual Age of Menarche: 12 Duration of menses: 3-5 days Date of last menstrual period: 02/11/24 control method: pills Total pregnancies: 0 Date of last pap smear: 04/21/22 (negative) History of abnormal pap smear: No Physical Exam Vital Signs: Last Vital Signs BP 122/72 03/06/24 15:23 BMI result Body Mass Index 45.9 Const General: healthy appearing, comfortable, no acute distress, well developed and alert Nutritional Appearance: average body habitus Orientation/consciousness: patient oriented x3 Limitations: no limitations HEENT Head: Yes normocephalic Neck Neck: Yes normal visual inspection Chest Chest palpation & inspection: normal inspection of the chest Breast/axilla inspection: normal inspection of the breasts and normal inspection of the axillae Breast/axilla palpation: normal palpation of the breasts and normal palpation of the axillae Resp Effort & Inspection: normal respiratory effort GI Inspection: Yes normal to inspection, No Abdominal wall edema and No distended Palpation (GI): Soft to palpation and nontender Other: External vulva within normal limits vagina pink and moist nulliparous cervix pink moist with clear mucus plug consistent with OCP use. Cervix long close thick mobile nontender uterus anteverted mobile nontender adnexa nontender good tone w Kegel General: Yes bladder normal to palpation External Female Exam: normal external appearance and normal appearance of the urethra Speculum Exam - Vagina: normal appearance of the vagina, normal palpation and normal vaginal discharge Speculum Exam - Cervix: normal appearance of the cervix, normal palpation and nontender Bimanual exam- vagina & uterus: normal bimanual exam, normal palpation, uterine size normal, bladder normal to palpation, consistency normal, normal palpation, uterine mobility normal, uterine shape normal, No Cervical tenderness present, non-tender and no cervical motion tenderness Bimanual Exam- Adnexa, other: normal adnexae, no masses, normal and No adnexal tenderness Neuro General: patient oriented x3 Assessment & Plan Assessment & Plan (1) Menometrorrhagia: Comment: emb- no atypia, managing well on ocps 04/21/22 Code(s): N92.1 - Excessive and frequent menstruation with irregular cycle Category: Medical (2) Counseling for control, oral contraceptives: Comment: Plus counseling for use of Mirena, secondary to elevated blood pressure; BP stable continuing on OCPs for now. Code(s): Z30.09 - Encounter for other general counseling and advice on contraception Category: Medical (3) Obesity, morbid, BMI 40.0-49.9: Comment: 04/21/22-making gradual changes, has lost some weight; has gained weight 2023. Is working on it. Code(s): E66.01 - Morbid (severe) obesity due to excess calories Category: Medical Plan -----Discussed in this visit the following: healthy balanced diet, regular and consistent exercise, getting recommended health screens, doing the best she can for her particular health concerns, kegel exercises, pap smear screening and followup recommendations, mammography screening and SBE, normal changes in cycles in her life stage--- . Her periods are regular control pills so she had to stay there worked well in that aspect for her. Discussed her efforts at weight loss and her being stuck where she is more or less Visited strategies for trying to get Regular exercise into her life, that better eating habits and making changes and finding motivation. Encouraged her to follow leads for the weight management program offer through her health insurance and the reasons why. Refills sent on her OCPs Orders: Orders Bacterial Vaginosis Panel Today N89.8 - Other specified noninflammatory disorders of vagina CT NG by PCR Today N89.8 - Other specified noninflammatory disorders of vagina Medications: Refilled desog-e.estradiol/e.estradiol 0.15-0.02 mgx21 /0.01 mg x 5 1 tab PO DAILY 84 tabs 4RF Coding Level of Care Code Est Pt Prev Care 18-39y(20725) Diagnoses Menometrorrhagia N92.1 Counseling for control, oral contraceptives Z30.09 Obesity, morbid, BMI 40.0-49.9 E66.01
== END 2024-03-06 16:02 | disposition home or self-care (01) ==
LOC: HO.HWSM 15:16
PROVIDERS: PCP Internal Medicine; Visit Provider Advanced Practice Midwife
DX: Z01.419 Encounter for gynecological examination (general) (routine) without abnormal findings (principal); N92.1 Excessive and frequent menstruation with irregular cycle; E66.01 Morbid (severe) obesity due to excess calories; Z30.09 Encounter for other general counseling and advice on contraception
CPT/HCPCS: 99395

== ENCOUNTER 2024-05-26 13:06 | Outpatient (AMB) | payer OTHER, SELFPAY ==
--- NOTE | 2024-05-26 13:11 | MHC.PC.OV ---
Vital Signs 05/26/24 13:16 05/26/24 13:29 Height 5 ft 8 in Weight 326 lb BMI 49.6 BP 134/92 H 150/90 H Blood Pressure Location Lt brachial Lt brachial Position Sitting Sitting Pulse 90 Pulse Source Pulse Oximeter Pulse Oximetry (%) 97 Oxygen Delivery Method Room Air Intake Visit Reasons: pe Allergies No Known Allergies Allergy (Verified 05/26/24 13:16) Medication List - Last Reconciled 05/26/24 by Ady Cisneros MD ascorbate calcium (vitamin C) 500 mg PO DAILY cholecalciferol (vitamin D3) 125 mcg PO DAILY desog-e.estradiol/e.estradiol 0.15-0.02 mgx21 /0.01 mg x 5 1 tab PO DAILY ferrous gluconate 236 mg PO DAILY Tobacco use date assessed: 05/26/24 Dental Screening Dental Screen Date: 05/26/24 Did you have a dental visit in the last 12 months?: Yes Did you have a dental problem in the last 6 months where you did not have access to dental care?: No Was dental information given to patient?: Patient has dentist HPI pe HPI Details nausea, dizzy, PFSH Medical History Cervical cancer screening Surgical History [place] teeth extracted Family History Mother No problems noted. Father Heart attack Sister No problems noted. 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 1. Little interest or pleasure in doing things: several days 2. Feeling down, depressed, or hopeless: several days 3. Trouble falling or staying asleep, or sleeping too much: more than half the days 4. Feeling tired or having little energy: more than half the days 5. Poor appetite or overeating: several days 6. Feeling bad about yourself - or that you are a failure or have let yourself or your family down: several days 7. Trouble concentrating on things, such as reading the newspaper or watching television: not at all 8. Moving or speaking so slowly that other people could have noticed. Or the opposite - being so fidgety or restless that you have been moving around a lot more than usual: not at all 9. Thoughts that you would be better off or of hurting yourself in some way: not at all Total score: 8 Depression Screening Interpretation: Positive Depression Screening Done: Yes 13344 - PHQ-9 Billing: Yes Source: Developed by Drs. Chente Dixon, Nadia Trevino, Adair Rosas and colleagues, with an educational carlos from [employer]. Thrive Questionnaire Date Thrive assessed: 05/19/24 I am a: Patient What is your living situation today?: I have a steady place to live Within the past 12 months, did the food you bought not last and you didn't have the money to get more?: Never true Within the past 12 months, did you worry whether your food would run out before you got money to buy more?: Never true Do you have trouble paying for medicines?: No Do you have trouble getting transportation to medical appointments?: No Do you have trouble paying your heating and electricity bill?: No Do you have trouble taking care of your child, family member or friend?: No Do you have trouble with day-to-day activities such as bathing, preparing meals, shopping, managing finances, etc.?: No Are you currently unemployed and looking for a job?: No Are you interested in more education?: I choose not to answer this question Please select the resources that you would like help with: None Currently or been in a relationship where the following occur: No concerns reported THRIVE Score: 0 AUDIT C Alcohol Use Questionnaire (AUDIT-C) 1. How often do you have a drink containing alcohol?: Never Total Score: 0 ASTER-7 AMB Questionnaire ASTER-7 Date ASTER - 7 assessed: 05/26/24 Feeling nervous, anxious, or on edge: 3 = Nearly every day Not being able to stop or control worryin = More than half the days Worrying too much about different things: 2 = More than half the days Trouble relaxin = More than half the days Being so restless that it is hard to sit still: 0 = Not at all Becoming easily annoyed or irritable: 1 = Several days Feeling afraid as if something awful might happen: 1 = Several days Total ASTER-7 score (0-4 normal; 5-9 mild; 10-14 moderate; 15-21 severe): 11 Source: Developed by Drs. Chente Dixon, Nadia Trevino, Adari Rosas and colleagues, with an educational carlos from [employer]. ASTER-7 Assessment Billing ASTER-7 Assessment Tool: ASTER-7 Assessment 42615 Review of Systems Const Denies poor appetite and Denies weakness Eyes Denies no additional complaints ENT Reports Normal hearing present, Denies dizziness, Denies nasal congestion, Denies tinnitus and Denies sore throat Card Denies chest pain, Denies syncope, Denies rapid heart rate and Denies dyspnea Resp Denies cough and Denies dyspnea GI Denies change in stool character, Reports constipation, Denies diarrhea, Denies nausea and Denies vomiting Denies urinary frequency, Denies difficulty voiding and Denies dysuria Neuro Reports Normal hearing present, Denies confusion, Denies dizziness, Denies syncope and Denies weakness Psych Denies confusion Physical exam (Primary Care) Vital Signs: Last Vital Signs Pulse 90 05/26/24 13:16 BP 150/90 H 05/26/24 13:29 Pulse Ox 97 05/26/24 13:16 Oxygen Delivery Method Room Air 05/26/24 13:16 BMI result Body Mass Index 49.6 Tobacco/Smoking Status: Tobacco use Status Tobacco use date assessed 05/26/24 05/26/24 13:22 Patient Tobacco Use Status Never used Tobacco 05/26/24 13:11 Tobacco use type Cigarette 05/26/24 13:22 e-Cigarette/Vaping Use Never Used 05/26/24 13:11 PHQ-9: PHQ-9 Score PHQ-9: Total score 8 05/26/24 13:59 Depression Screening Interpretation: Positive Thrive Assessment: Date of Thrive Assessment Date Thrive assessed 05/19/24 05/26/24 13:11 Currently or been in a relationship where the following occur: No concerns reported Const General: No confusion Orientation/consciousness: No confusion HENMT Head: Yes normocephalic Ears: external ears normal and TM's normal bilaterally Face and sinus: Yes normal facial exam Mouth: moist mucous membranes Throat: Yes tonsils normal Eyes Conjunctivae: conjunctivae normal Pupils: Equal, round and reactive pupils present and Pupil accommodation reflex normal Direct Ophthalmoscopy: normal light reflex Neck Neck: No lymphadenopathy Thyroid: Thyroid normal Chest Chest palpation & inspection: normal inspection of the chest Resp Effort & Inspection: normal respiratory effort and no audible wheezes Auscultation: clear to auscultation bilaterally, no crackles, no wheezes and lung sounds not diminished Cardio Rate: regular rate Rhythm: regular rhythm Peripheral pulses: radial pulses present and dorsalis pedis present GI Palpation (GI): no masses Auscultation: normal bowel sounds and normoactive bowel sounds Rectal Exam - Female: deferred Skin General skin exam: no rashes or lesions noted Rashes: no rashes Neuro General: No confusion Cranial nerves: Yes Equal, round and reactive pupils present and Yes Normal hearing present Cognition (Neuro): normal cognition Gait exam (Neuro): Normal gait present Motor exam (neuro): 5/5 motor strength present throughout Deep tendon reflexes (DTR's): Right brachioradialis reflex intensity grade: 2+, Left brachioradialis reflex intensity grade: 2+, Right patellar reflex intensity grade: 2+ and Left patellar reflex intensity grade: 2+ Extrem General: No edema Office Procedures Flu Questionnaire Does the patient have a severe egg allergy?: No Does the patient have severe life threatening allergies?: No Does the patient have a fever or illness today?: No Has the patient ever had Guillain-Emelle Syndrome?: No Has the patient ever had any past reaction to a flu shot?: No Immunizations Fluarix Triv [id number] (PF) 45 mcg (15 mcg x 3)/0.5 mL IM syringe Performing Provider: Ady Cisneros MD Performing Location: [facility] [place] [facility] Administered by: SAVANNAH Agee on 05/26/24 13:59 Dose Route Admin Location Dispensed Lot Number Expiration Date NDC [employer] 0.5 mL IM Left Deltoid 0.5 mL [id number] 10/02/24 52812-276-85 [employer] VIS Given Date VIS Provided VIS Publication Date 05/26/24 Single Vaccine 20 Eligibility Eligibility Date Funding Source Not VFC Eligible 05/26/24 Private Coding Level of Care Code Est Pt Prev Care 18-39y(94209) Diagnoses Annual physical exam Z00.00 Obesity, morbid, BMI 40.0-49.9 E66.01 Hypertension I10 GERD (gastroesophageal reflux disease) K21.9 Additional Codes ASTER-7 Assessment Billing - ASTER-7 Assessment Tool: ASTER-7 Assessment 09665 ([id number]) PHQ-9 - 85898 - PHQ-9 Billing: Yes ([id number]) Assessment & Plan Assessment & Plan (1) Annual physical exam: Code(s): Z00.00 - Encounter for general adult medical examination without abnormal findings Category: Medical (2) Obesity, morbid, BMI 40.0-49.9: Comment: 04/21/22-making gradual changes, has lost some weight; has gained weight 2023. Is working on it. Code(s): E66.01 - Morbid (severe) obesity due to excess calories Category: Medical (3) Hypertension: Code(s): I10 - Essential (primary) hypertension Category: Medical (4) GERD (gastroesophageal reflux disease): Code(s): K21.9 - Gastro-esophageal reflux disease without esophagitis Category: Medical Plan History of Present Illness The patient is a 28-year-old female presenting for a physical exam and review of her medical history. She has a history of morbid obesity and generalized anxiety disorder, with the latter noted as being addressed in previous consultations. She has been recently treated for acute pharyngitis and diarrhea at an emergency center. There is also a concern regarding possible vitamin D deficiency identified previously. The patient's last mammogram was conducted in 2021. She follows up with her motor vehicle compliance analyst for further management, including the use of metoprolol. No other significant medical history is noted in the current conversation. Health Maintenance - Last mammogram conducted in 2021 - Management and follow-up with a motor vehicle compliance analyst - Consideration for vitamin D supplementation due to deficiency Social History Review of Systems Physical Exam General: Cooperative, healthy appearing, comfortable, no acute distress and well developed Orientation: Patient oriented x3 Limitations: No limitations Head: Normal to inspection Ears: Hearing grossly normal bilaterally Nose: Normal external nose present Face and sinus: Normal facial exam Eyes: Appearance normal, both eyes and all related structures Neck: Normal visual inspection and Yes full ROM Respiratory: Normal respiratory effort and able to speak in complete sentences. Clear to auscultation bilaterally Cardiovascular: Regular rate and rhythm. Normal S1 and S2 GI: Normal to inspection. Soft to palpation and nontender Skin: No rashes or lesions noted Neuro: Patient oriented x3 Extremities: Normal to inspection Results Plan Patient was informed and verbally consented to the use of an ambient scribe for clinic note documentation during this visit. 1. Acute Pharyngitis Adequate hydration, rest, and symptomatic treatment have been recommended. Previous treatment in the emergency setting should be reviewed for effectiveness. 2. Diarrhea Symptomatic management to ensure hydration and electrolyte balance. Continuation of dietary modifications or medications if prescribed at prior emergency visit. 3. Morbid Obesity The patient?s morbid obesity requires ongoing management, potentially involving a comprehensive weight management program, dietary counseling, and consideration for pharmacotherapy or surgical options if appropriate. Monitoring for obesity-related complications is advised. 4. Vitamin D Deficiency Possible vitamin D supplementation to correct deficiency should be discussed, along with monitoring of levels and reassessment. 5. Generalized Anxiety Disorder Ongoing management with psychotherapy and pharmacotherapy as indicated, with follow-up for efficacy and any side effects. Discussion Notes During the visit, we reviewed the patient's history, including management for morbid obesity and generalized anxiety disorder. I emphasized the importance of adhering to her treatment plan with her motor vehicle compliance analyst, especially concerning metoprolol. Potential interventions for addressing her obesity and anxiety disorder were discussed, including lifestyle modifications and potential options for therapy. We touched on the need for vitamin D supplementation due to her deficiency. I advised continuing the current management for acute pharyngitis and diarrhea and considered reviewing emergency center treatments for their effectiveness. Patient Instructions - Continue following up with your motor vehicle compliance analyst. - Ensure adequate hydration and rest following recent illness. - Discuss vitamin D supplementation with your healthcare provider. - Adhere to prescribed therapy for anxiety disorder management. - Monitor your weight and consider lifestyle changes for obesity management. - Contact us if symptoms worsen or new concerns arise. Orders: Orders Comprehensive Met. Panel Today I10 - Essential (primary) hypertension Thyroid Stimulating Hormone Today I10 - Essential (primary) hypertension Vitamin B12 and Folate Today I10 - Essential (primary) hypertension Vitamin D 25-OH Total Today I10 - Essential (primary) hypertension Hemoglobin A1c Today I10 - Essential (primary) hypertension FL upper GI series Today K21.9 - Gastro-esophageal reflux disease without esophagitis, R13.10 - Dysphagia, unspecified Ferritin Today K21.9 - Gastro-esophageal reflux disease without esophagitis Complete Blood Count Auto Diff Today I10 - Essential (primary) hypertension Free T4 (Free Thyroxine) Today I10 - Essential (primary) hypertension Lipid Panel Today E78.00 - Pure hypercholesterolemia, unspecified, I10 - Essential (primary) hypertension UA w Microscopic Today I10 - Essential (primary) hypertension IRON PROFILE Today K21.9 - Gastro-esophageal reflux disease without esophagitis Reticulocyte Count Today K21.9 - Gastro-esophageal reflux disease without esophagitis Influenza [id number] Immunization Today Z23 - Encounter for immunization Medications: New hydrochlorothiazide 12.5 mg PO DAILY 30 tabs 3RF I10 - Essential (primary) hypertension omeprazole 20 mg PO DAILY 30 caps 1RF K21.9 - Gastro-esophageal reflux disease without esophagitis
[2024-05-26 13:16] VITALS: BP 134/92; PULSE 90; O2SAT 97; BMI 49.6
[2024-05-26 13:29] VITALS: BP 150/90
== END 2024-05-26 13:59 | disposition home or self-care (01) ==
PROVIDERS: PCP Internal Medicine; Visit Provider Internal Medicine
DX: Z00.00 Encounter for general adult medical examination without abnormal findings (principal); E66.01 Morbid (severe) obesity due to excess calories; Z68.42 Body mass index [BMI] 45.0-49.9, adult; I10 Essential (primary) hypertension; K21.9 Gastro-esophageal reflux disease without esophagitis; Z23 Encounter for immunization

== ENCOUNTER → 2024-05-26 13:06 | Outpatient (BNVA) | payer OTHER, SELFPAY | PROVIDERS: PCP Internal Medicine; Visit Provider Internal Medicine | DX: Z00.00 Encounter for general adult medical examination without abnormal findings (principal); Z23 Encounter for immunization; E66.01 Morbid (severe) obesity due to excess calories; Z68.42 Body mass index [BMI] 45.0-49.9, adult; I10 Essential (primary) hypertension; K21.9 Gastro-esophageal reflux disease without esophagitis | CPT/HCPCS: 90471; 90656; 96127 ==

== ENCOUNTER 2024-05-27 07:42 | Outpatient (REF) | payer OTHER, SELFPAY ==
[2024-05-27 08:01] LABS: MANUAL DIFF FLAG NO
[2024-05-27 09:07] LABS: Basophils Absolute Auto 0.1 X10*3/uL (0.0-0.2); Basophils Percent Auto 0.6 % (0-2); Eosinophils Absolute Auto 0.2 X10*3/uL (0.0-0.4); Eosinophils Percent Auto 2.2 % (0-4); Hematocrit 41.7 % (37.0-47.0); Hemoglobin 14.7 g/dl (12.0-16.0); Imm Gran Abs Auto 0.03 X10*3/uL (0.00-0.03); Imm Gran Pct Auto 0.4 % (0.0-0.4); Immature Retic Fraction 17.4 % (3.0-15.9); Lymphocytes Absolute Auto 2.2 X10*3/uL (1.2-4.9); Lymphocytes Percent Auto 28.4 % (20-40); Mean Corpuscular HGB Conc 35.3 g/dl (31.0-35.0); Mean Corpuscular Hemoglobin 30.5 pg (27.0-33.0); Mean Corpuscular Volume 86.5 fL (80.0-98.0); Mean Platelet Volume 10.7 fL (9.4-12.3); Monocytes Absolute Auto 0.6 X10*3/uL (0.1-1.2); Monocytes Percent Auto 7.3 % (2-11); Neutrophils Absolute Auto 4.7 x10*3/uL (2.0-8.3); Neutrophils Percent Auto 61.1 % (45-73); Platelet Count 260 X10*3/uL (160-400); Red Blood Count 4.82 X10*6/uL (4.20-5.50); Red Cell Distribution Width 12.6 % (11.0-16.0); Retic HGB Equivalent 34.3 pg (30.0-35.0); Reticulocyte Percent 2.5 % (0.5-1.8); Reticulocytes Absolute 0.118 X10*6/uL (0.026-0.095); White Blood Count 7.7 X10*3/uL (4.8-10.8)
[2024-05-27 09:18] LABS: Estimated Average Glucose 82 mg/dL; Hemoglobin A1C 95.9353 umol/L; Hemoglobin A1c % 4.5 % (<6.0); Total Hemoglobin (HGBA1C) 3815.7551 umol/L
[2024-05-27 09:58] LABS: Alanine Aminotransferase 13 U/L (0-31); Albumin Level 4.1 g/dL (3.5-5.0); Alkaline Phosphatase 46 U/L (39-117); Anion Gap 16 (12-20); Aspartate Amino Transferase 18 U/L (5-31); Bilirubin Total 0.6 mg/dL (0.0-1.0); Blood Urea Nitrogen 9 mg/dL (9-16); Calcium 9.5 mg/dL (8.4-10.2); Carbon Dioxide 23 mmol/L (22-29); Chloride 105 mmol/L (96-108); Cholesterol 176 mg/dL (<200); Estimated Glomerular Filt Rate > 60; Glucose Random 94 mg/dL (60-115); HDL Cholesterol 54 mg/dL (>40); Iron 77 mcg/dL (30-160); LDL Cholesterol Calculated 95 mg/dL (<100); Percent Iron Saturation 20 % (15-50); Potassium 4.5 mmol/L (3.3-5.1); Sodium 139 mmol/L (135-145); Total Iron Binding Capacity 390 mcg/dL (228-428); Total Protein 7.5 g/dL (6.5-8.0); Triglycerides 136 mg/dL (<150); Unsaturated Iron Binding 313 ug/dL
[2024-05-27 10:22] LABS: Ferritin 66 ng/mL (10-122); Free T4 (Free Thyroxine) 1.05 ng/dL (0.71-1.85); Thyroid Stimulating Hormone 1.22 uIU/mL (0.32-4.0); Vitamin D 25-OH Total 50.4 ng/mL (>30)
[2024-05-27 10:27] LABS: Folate 12.1 ng/mL (> or = 4.0); Vitamin B12 228 pg/mL (200-900)
[2024-05-27 10:39] LABS: Appearance Urine Cloudy; Color Urine Yellow; Glucose Urine UA Negative (Negative); Leukocyte Esterase Urine Moderate (2+) (Negative); Nitrite Urine Negative (Negative); Specific Gravity - Urine 1.025 (1.005-1.025); UMIC TRIGGER UA YES; Urine Blood Negative (Negative); Urine Ketones Negative (Negative); Urine Protein Trace mg/dL (Neg-Trace)
[2024-05-27 10:55] LABS: Bacteria Urine 4+ (None Seen); Hyaline Casts Urine 0-2 /LPF (0-2); RBC Urine 0-2 /HPF (0-2); Squamous Epithelial Cell Urine >20 /HPF (0-2); WBC Urine 21-50 /HPF (0-5)
== END 2024-05-27 07:43 | disposition home or self-care (01) ==
LOC: HO.LAB 07:42
PROVIDERS: PCP Internal Medicine; Visit Provider Internal Medicine
DX: I10 Essential (primary) hypertension (principal); E78.00 Pure hypercholesterolemia, unspecified; K21.9 Gastro-esophageal reflux disease without esophagitis; Z13.1 Encounter for screening for diabetes mellitus
CPT/HCPCS: 36415; 80053; 80061; 81001; 82306; 82607; 82728; 82746; 83036; 83540; 84439; 84443; 85025; 85045

== ENCOUNTER 2024-08-17 08:50 | Outpatient (REF) | payer OTHER, SELFPAY ==
--- NOTE | ~2024-08-17 | FL_ITS ---
EXAMINATION: XR GI AIR CONTRAST STUDY CLINICAL INFORMATION: Dysphagia COMPARISON: None available. TECHNIQUE: Upper GI air contrast study was performed in upright and lying position. FINDINGS: Following oral demonstration of thick barium and effervescent granules is normal propagation bolus from the oral cavity through the pharynx, esophagus into stomach without obstruction, narrowing or stricture. No retention of barium seen in the valleculae or piriform sinuses. On placing patient in supine and prone lying the course, caliber and peristalsis of the stomach, duodenal bulb and sweep is normal. There is moderate gastroesophageal reflux without hiatal hernia. The mucosal pattern of stomach and the duodenum is normal. FLUOROSCOPY TIME: 1 minute 42 seconds. DOSE AREA PRODUCT: 2103 uGy-m2 (microgray-meter squared) FL/FL upper GI series IMPRESSION: Except for moderate gastroesophageal esophageal reflux the upper GI air contrast study is unremarkable . Especially there is no esophageal obstruction or narrowing. Electronically signed by: Jerel Valdes MD 08/17/2024 03:58 PM EDT
== END 2024-08-17 08:51 | disposition home or self-care (01) ==
LOC: HO.XRAY 08:50
PROVIDERS: PCP Internal Medicine; Visit Provider Internal Medicine
DX: R13.10 Dysphagia, unspecified (principal); K21.9 Gastro-esophageal reflux disease without esophagitis
CPT/HCPCS: 74240

== ENCOUNTER → 2024-08-17 08:52 | Outpatient (BNV) | payer OTHER, SELFPAY | PROVIDERS: PCP Internal Medicine; Visit Provider Radiology Diagnostic Radiology | DX: K21.9 Gastro-esophageal reflux disease without esophagitis (principal) | CPT/HCPCS: 74246 ==

== ENCOUNTER 2024-08-25 14:28 | Outpatient (AMB) | payer OTHER, SELFPAY ==
[2024-08-25 14:40] VITALS: BP 138/84; PULSE 88; TEMP 36.2; O2SAT 98; BMI 48.7
--- NOTE | 2024-08-25 14:40 | MHC.PC.OV ---
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 Accompanied by: Self / Same As Patient Allergies No Known Allergies Allergy (Verified 08/25/24 14:44) Medication List - Last Reconciled 08/25/24 by Ady Cisneros MD ascorbate calcium (vitamin C) 500 mg PO DAILY cholecalciferol (vitamin D3) 125 mcg PO DAILY desog-e.estradiol/e.estradiol 0.15-0.02 mgx21 /0.01 mg x 5 1 tab PO DAILY ferrous gluconate 236 mg PO DAILY hydrochlorothiazide 12.5 mg PO DAILY omeprazole 20 mg PO DAILY Tobacco use date assessed: 05/26/24 Dental Screening Dental Screen Date: 05/26/24 [facility] Medical History Cervical cancer screening Surgical History [place] teeth extracted Family History Mother No problems noted. Father Heart attack Sister No problems noted. 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 Current occupational exposures/hazards: No Cognitive needs: No Hearing needs: No Vision needs: Yes Female Reproductive History Menstrual Age of Menarche: 12 Questionnaire Thrive Questionnaire Date Thrive assessed: 05/19/24 I am a: Patient What is your living situation today?: I have a steady place to live Within the past 12 months, did the food you bought not last and you didn't have the money to get more?: Never true Within the past 12 months, did you worry whether your food would run out before you got money to buy more?: Never true Do you have trouble paying for medicines?: No Do you have trouble getting transportation to medical appointments?: No Do you have trouble paying your heating and electricity bill?: No Do you have trouble taking care of your child, family member or friend?: No Do you have trouble with day-to-day activities such as bathing, preparing meals, shopping, managing finances, etc.?: No Are you currently unemployed and looking for a job?: No Are you interested in more education?: I choose not to answer this question Please select the resources that you would like help with: None Currently or been in a relationship where the following occur: No concerns reported THRIVE Score: 0 AUDIT C Alcohol Use Questionnaire (AUDIT-C) 2. How many drinks containing alcohol do you have on a typical day when you are drinking?: 1 or 2 3. How often do you have six or more drinks on one occasion?: Never Total Score: 0 ASTER-7 AMB Questionnaire ASTER-7 Date ASTER - 7 assessed: 05/26/24 Source: Developed by Drs. Chente Dixon, Nadia Trevino, Adair Rosas and colleagues, with an educational carlos from [employer]. Physical exam (Primary Care) Vital Signs: Last Vital Signs Temp 97.1 F 08/25/24 14:40 Pulse 88 08/25/24 14:40 BP 138/84 08/25/24 14:40 Pulse Ox 98 08/25/24 14:40 Oxygen Delivery Method Room Air 08/25/24 14:40 BMI result Body Mass Index 48.7 Tobacco/Smoking Status: Tobacco use Status Tobacco use date assessed 05/26/24 08/25/24 14:45 Patient Tobacco Use Status Never used Tobacco 08/25/24 14:45 Tobacco use type Cigarette 08/25/24 14:45 e-Cigarette/Vaping Use Never Used 08/25/24 14:45 Thrive Assessment: Date of Thrive Assessment Date Thrive assessed 05/19/24 08/25/24 14:45 Currently or been in a relationship where the following occur: No concerns reported Const General: alert; No acute distress Eyes Conjunctivae: conjunctivae normal Resp Auscultation: clear to auscultation bilaterally Cardio Rate: regular rate Rhythm: regular rhythm GI Inspection: Yes normal to inspection Extrem General: Yes normal to inspection and No edema Coding Level of Care Code Est Pt Level 4 (90855) Diagnoses Obesity, morbid, BMI 40.0-49.9 E66.01 Hypertension I10 GERD (gastroesophageal reflux disease) K21.9 Vitamin B 12 deficiency E53.8 Assessment & Plan Assessment & Plan (1) Obesity, morbid, BMI 40.0-49.9: Comment: 04/21/22-making gradual changes, has lost some weight; has gained weight 2023. Is working on it. Code(s): E66.01 - Morbid (severe) obesity due to excess calories Category: Medical Plan: Diet and exercise (2) Hypertension: Code(s): I10 - Essential (primary) hypertension Category: Medical Plan: Continue with blood pressure medication. Decrease salt intake and exercise on hydrochlorothiazide 12.5 mg once a day (3) GERD (gastroesophageal reflux disease): Comment: August 2024Except for moderate gastroesophageal esophageal reflux the upper GI air contrast study is unremarkable . Especially there is no esophageal obstruction or narrowing. Code(s): K21.9 - Gastro-esophageal reflux disease without esophagitis Category: Medical Plan: Avoid the foods that causes that usually spicy foods, tomato products, juices, coffee, soda and foods that your sensitive to. After eating do not lie down, allow 3-4 hours before in lie down. And keep the head of bed above 30 degrees to avoid the acid from going up. (4) Vitamin B 12 deficiency: Code(s): E53.8 - Deficiency of other specified B group vitamins Category: Medical Plan: Discussed about vitamin B12 1000 mcg once a day Plan History of Present Illness The patient is a 28-year-old female presenting with management concerns regarding her hypertension and GERD. She has a history of essential hypertension and is currently on Hydrochlorothiazide 12.5 mg daily. At-home blood pressure readings have been in the 130?150s for systolic pressure with occasional peaks in the 150s over 90s. There have been considerations for adjusting the dosage to improve blood pressure control. The patient has GERD, previously documented through an upper GI series, showing moderate gastroesophageal reflux. Management has included dietary modifications such as smaller, oral and maxillofacial surgeon meals and meal spacing. Additional concerns have been raised about nutrient deficiencies (Vitamin B12 and magnesium) due to long-term Omeprazole usage, and consideration is being given to alter its usage to an as needed basis. Health Maintenance - Discussed importance of diet and exercise for overall health. - Monitoring blood pressure at home as part of hypertension management. - Discussion about the possible need for magnesium supplementation if symptoms of deficiency arise. - Weight management and the role of diet in reducing reflux symptoms. Social History - Employment results in stress contributing to anxiety symptoms. - Current exercise and dietary habits are focused on managing health conditions. - Patient declined interest in weight management medication due to schedule constraints for weight management program attendance. Review of Systems - Constitutional: Denies fever, weight loss despite recent 6-pound weight drop. - Cardiovascular: Reports home blood pressure readings in 130s to 150s/90s. - Gastrointestinal: Reports symptoms consistent with GERD. - Neurological: Denies headache or vision changes. - Hematological: Denies recent bleeding or bruising incidents. Physical Exam Results - Labs: Normal blood count, electrolytes, renal function, blood sugar, iron studies, liver function. Low Vitamin B12. - Tests: Upper GI series showing moderate gastroesophageal reflux. Plan For hypertension, an increase in Hydrochlorothiazide dosage was advised to improve blood pressure control, with a reminder to monitor for side effects and stay hydrated. For GERD management, transitioning from regular Omeprazole use to as needed was recommended to address possible nutrient deficiencies, while maintaining small, frequent meals. The patient was encouraged to continue supplementation and adhere to lifestyle changes beneficial for controlling symptoms and overall health. Continuing regular blood pressure monitoring and symptom tracking were also advised. Patient was informed and verbally consented to the use of an ambient scribe for clinic note documentation during this visit. Discussion Notes I extensively discussed the management strategies for essential hypertension, focusing on adjusting Hydrochlorothiazide dosage for improved blood pressure control, and the importance of monitoring for side effects such as leg cramps. The risks and benefits of transitioning Omeprazole to an as needed regimen were reviewed, emphasizing potential nutrient absorption concerns and the need for monitoring Vitamin B12 levels. Additionally, we discussed the broader benefits of lifestyle interventions, including dietary management and exercise, in managing hypertension and GERD. The patient is advised to follow up with any issues potentially arising from these changes and to report new symptoms promptly. Patient Instructions - Increase Hydrochlorothiazide intake to two 12.5 mg pills at the same time daily as directed. - Use Omeprazole on an as needed basis for GERD symptoms, along with small, frequent meals. - Continue B12 supplementation as previously instructed. - Maintain regular blood pressure checks at home. - Stay well-hydrated, especially when taking water pills. - Contact the office if symptoms worsen or new side effects develop. - Engage in regular physical activity and continue dietary management. Orders: Referrals Medical Weight Management Referral D21.9 - Benign neoplasm of connective and other soft tissue, unspecified, E66.01 - Morbid (severe) obesity due to excess calories, N92.1 - Excessive and frequent menstruation with irregular cycle, R03.0 - Elevated blood-pressure reading, without diagnosis of hypertension, Z83.3 - Family history of diabetes mellitus Medications: New cyanocobalamin (vitamin B-12) 1,000 mcg PO DAILY 30 caps 3RF E53.8 - Deficiency of other specified B group vitamins Changed From hydrochlorothiazide 12.5 mg PO DAILY 90 tabs 3RF I10 - Essential (primary) hypertension To hydrochlorothiazide 25 mg PO DAILY 90 tabs 1RF 90 days I10 - Essential (primary) hypertension Refilled omeprazole 20 mg PO DAILY 90 caps 1RF K21.9 - Gastro-esophageal reflux disease without esophagitis hydrochlorothiazide 12.5 mg PO DAILY 90 tabs 3RF I10 - Essential (primary) hypertension
== END 2024-08-25 16:29 | disposition home or self-care (01) ==
LOC: HO.HMCH 14:28
PROVIDERS: PCP Internal Medicine; Visit Provider Internal Medicine
DX: I10 Essential (primary) hypertension (principal); E66.01 Morbid (severe) obesity due to excess calories; Z68.42 Body mass index [BMI] 45.0-49.9, adult; K21.9 Gastro-esophageal reflux disease without esophagitis; E53.8 Deficiency of other specified B group vitamins

== ENCOUNTER → 2024-08-25 14:28 | Outpatient (BNVA) | payer OTHER, SELFPAY | PROVIDERS: PCP Internal Medicine; Visit Provider Internal Medicine ==

== ENCOUNTER 2025-01-11 10:04 | Outpatient (AMB) | payer OTHER, SELFPAY ==
[2025-01-11 10:05] VITALS: BP 128/94; PULSE 83; RESP 16; TEMP 36.9; O2SAT 99; BMI 49.3
--- NOTE | 2025-01-11 10:05 | MHC.OFFWIV ---
Intake Vital Signs 01/11/25 10:05 Height 5 ft 8 in Weight 324 lb BMI 49.3 BP 128/94 H Blood Pressure Location Rt brachial Position Sitting Respiration 16 Pulse 83 Pulse Source Pulse Oximeter Temp 98.5 F Temp Source Oral Pulse Oximetry (%) 99 Oxygen Delivery Method Room Air Intake Visit Reasons: EP-stomach issues Intake Note: Pt is here today c/o nausea,vomiting and diarrhea with stomach cramping since last night Patient Tobacco Use Status: Never used Tobacco Allergies No Known Allergies Allergy (Verified 01/11/25 10:08) HPI HPI Comments History of Present Illness Details 29 y/o Female patient who presents to the walk in clinic with c/o nausea,vomiting and diarrhea with stomach cramping since last night. She has not taken any OTC medications for pain. Denies fevers,or body chills. Denies blood in stool. [facility] Medical History (Updated 01/11/25 @ 10:57 by Mayra Thao NP) Nausea & vomiting Generalized abdominal pain Cervical cancer screening Surgical History [place] teeth extracted Family History Mother No problems noted. Father Heart attack Sister No problems noted. 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 Current occupational exposures/hazards: No Cognitive needs: No Hearing needs: No Vision needs: Yes Female Reproductive History Menstrual Age of Menarche: 12 Review of Systems Const All systems reviewed & are unremarkable except as noted in HPI and below Physical Exam Vital Signs: Last Vital Signs Temp 98.5 F 01/11/25 10:05 Pulse 83 01/11/25 10:05 Resp 16 01/11/25 10:05 BP 128/94 H 01/11/25 10:05 Pulse Ox 99 01/11/25 10:05 Oxygen Delivery Method Room Air 01/11/25 10:05 BMI result Body Mass Index 49.3 Const General: no acute distress Nutritional Appearance: obese morbidly obese Orientation/consciousness: patient oriented x3 GI Inspection: Yes normal to inspection and Yes obesity Palpation (GI): Soft to palpation, not firm, Tenderness to palpation present (GI) (generalized tenderness), no guarding and not rigid Auscultation: normal bowel sounds Rectal Exam - Female: deferred Neuro General: patient oriented x3, gait normal and moves all extremities Psych Speech and movement: Normal speech and movement present Assessment & Plan Assessment & Plan (1) Generalized abdominal pain: Code(s): R10.84 - Generalized abdominal pain Plan: Ordered Zofran for Nausea and vomiting. OTC remedies such as Pepto-bismal Advance diet slowly - avoid Oily and spicy foods. Medications: New ondansetron 8 mg PO Q8H 30 tabs 0RF R11.2 - Nausea with vomiting, unspecified Coding Level of Care Code Est Pt Level 4 (27513) Diagnoses Generalized abdominal pain R10.84 Time Spent (min) 20
== END 2025-01-11 11:04 | disposition home or self-care (01) ==
PROVIDERS: PCP Internal Medicine; Visit Provider Nurse Practitioner Family
DX: R10.84 Generalized abdominal pain (principal)

== ENCOUNTER 2025-01-29 08:01 | Outpatient (AMB) | payer OTHER, SELFPAY ==
--- NOTE | 2025-01-29 08:08 | MHC.OFFVISWM ---
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 48.2 Allergies No Known Allergies Allergy (Verified 01/29/25 08:09) Medication List - Last Reconciled 01/29/25 by Luke Dickens MD ascorbate calcium (vitamin C) 500 mg PO DAILY cholecalciferol (vitamin D3) 125 mcg PO DAILY cyanocobalamin (vitamin B-12) 1,000 mcg PO DAILY desog-e.estradiol/e.estradiol 0.15-0.02 mgx21 /0.01 mg x 5 1 tab PO DAILY ferrous gluconate 236 mg PO DAILY hydrochlorothiazide 25 mg PO DAILY 90 days omeprazole 20 mg PO DAILY HPI HPI 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 BMI 48.2: Details: Start time: 8.06am, End time: 8.51am ?I spent 40 minutes speaking with the patient on the phone plus an additional 5 minutes reviewing and updating records for a total of 45 minutes HPI Comments Details: Previous weight loss efforts: self diet and exercise Wakes up: 6am, Sleeps: 10pm Breakfast: 7-7.30am (Yogurt, apple/banana, Think protein bar) Lunch: 12pm (sandwiches, pasta, Lean cousine) Dinner: 5.30pm (protein, chicken, beef, pasta, potatoes) Snacks: 3-4pm (crackers or chips when home), 8-9pm (cheese, crackers, or chips) Exercise: has home Elliptical (tracks calories) Beverages: Coffee (3-4/wk 1 cup/d with milk), Tea: (Iced tea with calories 2-3/wk), Soda: a few times/month, Juice: none, ETOH: none PFSH Medical History (Updated 01/11/25 @ 10:57 by Mayra Thao NP) Nausea & vomiting Generalized abdominal pain Cervical cancer screening Surgical History [place] teeth extracted Family History Mother No problems noted. Father Heart attack Sister No problems noted. 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 Current occupational exposures/hazards: No Cognitive needs: No Hearing needs: No Vision needs: Yes Female Reproductive History Menstrual Age of Menarche: 12 Telehealth Telehealth Telehealth Platform: Telephone Location of provider rendering services: practice address Location of patient: address on file Patient Identification confirmed using: Name, : Yes Telehealth method: voice only Patient verbally consented to treatment: Yes Patient verbally consented to billing insurance company: Yes Patient informed of any privacy concerns related to visit: Yes Minutes spent on Phone/Video with Pt.: 45 Assessment & Plan Assessment & Plan (1) Obesity, morbid, BMI 40.0-49.9: Comment: 04/21/22-making gradual changes, has lost some weight; has gained weight 2023. Is working on it. Code(s): E66.01 - Morbid (severe) obesity due to excess calories Category: Medical Plan: 1. Nutritional counseling. Start with one CELEBRATE REBUILD protein (buy at [facility]) shakes (ONE scoop in 8oz low fat unsweetened almond milk each) at 7am-9am, 1 THINK protein bar at 10am-12pm, another CELEBRATE REBUILD protein shakes (ONE scoop in 8oz low fat unsweetened almond milk each) at 1pm-3pm, another THINK protein bar at 4pm-6pm, dinner at 7pm (12 forks of protein and 12 forks of salad/vegetables) AND another HALF protein bar after dinner at 9pm-10pm. So you do 2 protein shakes, 2.5 protein bars and one meal per day. Meal to include lean meat (beef, fish, pork, turkey, chicken), or yakut yogurt, or egg whites, or beans with a salad with olive oil and fruits (berries, pears, apples, kiwi). Avoid salt, breads, potatoes, rice, pasta, desserts. 3. Each shake would be drunk slowly, like coffee in a period of 2 hours. 4. Cut each bar in 4 pieces and eat each piece in 30min ?to make each bar last 2 hours. 5. I emphasized the importance of measuring accurately the food portion and measure it when serving the food in plate 6. The meal portions include 12 full-size forks of meat and 12 full-size forks of salad. You always eat the meat portion but you can replace up to 6 forks for salad/vegetables with rice, potatoes or pasta, or a fruit ?if you like. The less you do it the better weight loss will be. 7. One full-size fork is what it can be scooped on the fork without falling aside and not what can be bit with the fork. Use regular forks like those you find in a typical restaurant. 8.? Please buy the body composition scale we discussed and send me weight measurements as soon as possible and then once a week. Always include your diet and exercise plan. Alternatively come weekly at the office for weight checks and send me the measurements. 9. Start Elliptical with an incline of 2.0 and resistance of 4.0. Increase resistance by 1 every 3 min to a max resistance of 10.0, and repeat cycles for 300 calories. 9. Goal is to lose at least 1.5-2lbs per week 10. Goal to lose at least 10% of your weight, which is about 32lbs. Minimum weight goal: 285lbs 11. Please follow the diet plan exactly without any change. If you don't like something about the plan or you feel hungry you need to communicate with me so I can help you revise the plan. You should not change the plan yourself
[2025-01-29 08:18] VITALS: BMI 48.2
== END 2025-01-29 08:52 | disposition home or self-care (01) ==
LOC: HO.HBS 08:01
PROVIDERS: PCP Internal Medicine; Visit Provider Surgery
DX: E66.01 Morbid (severe) obesity due to excess calories (principal)
CPT/HCPCS: 99204

== ENCOUNTER 2025-03-09 14:23 | Outpatient (AMB) | payer OTHER, SELFPAY ==
--- NOTE | 2025-03-09 15:08 | A.OFFVIS_ITS ---
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 Visitor Services Associate: Visitor Services Associate Present (Nisreen) Accompanied by: Self / Same As Patient Allergies No Known Allergies Allergy (Verified 03/09/25 15:13) Medication List - Last Reconciled 03/09/25 by Stephany Hoff CNM ascorbate calcium (vitamin C) 500 mg PO DAILY cholecalciferol (vitamin D3) 125 mcg PO DAILY cyanocobalamin (vitamin B-12) 1,000 mcg PO DAILY desog-e.estradiol/e.estradiol 0.15-0.02 mgx21 /0.01 mg x 5 1 tab PO DAILY ferrous gluconate 236 mg PO DAILY hydrochlorothiazide 25 mg PO DAILY 90 days omeprazole 20 mg PO DAILY Is last menstrual period known: Yes Last menstrual period: 03/09/25 Post menopausal: No Patient : No HPI HPI 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 She is not really having any polysom tech concerns whatsoever and does not feel she even needs STI testing she did have sex with her boyfriend the summer but he used a condom and she has no concerns and she had been screened before that in their relationship. She is doing well on the pills with regular periods and she wants to stay on them. Her blood pressure here today is within normal limits 122 over 86. Sometimes it can be more elevated She has finally started on the weight management program she was waiting a long time for the referral to go through because of a wait list she is doing the protein shakes and keeping track of what she eats and working on the exercise portion of it as well. She feels it does give her some guidance about what to do. She was told that she would not qualify for insurance to pay for the GLP ones and she would have to pay [id number] for them and it would be 100s of dollars a month. She is not due for Pap smear as her last Pap smear was in 2022. [facility] Medical History (Updated 03/09/25 @ 16:56 by Stephany Hoff CNM) Cervical cancer screening Nausea & vomiting Generalized abdominal pain Surgical History [place] teeth extracted Family History Mother No problems noted. Father Heart attack Sister No problems noted. 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 Current occupational exposures/hazards: No Cognitive needs: No Hearing needs: No Vision needs: Yes Female Reproductive History Menstrual Age of Menarche: 12 Date of last menstrual period: 03/09/25 control method: pills Total pregnancies: 0 Date of last pap smear: 04/21/22 (negative pap smear) History of abnormal pap smear: No Physical Exam Vital Signs: Last Vital Signs BP 122/86 03/09/25 15:12 BMI result Body Mass Index 47.9 Const General: healthy appearing, comfortable, no acute distress, well developed and alert Nutritional Appearance: average body habitus and obese Orientation/consciousness: patient oriented x3 Limitations: no limitations HEENT Head: Yes normocephalic Neck Neck: Yes normal visual inspection Chest Chest palpation & inspection: normal inspection of the chest Breast/axilla inspection: normal inspection of the breasts and normal inspection of the axillae Breast/axilla palpation: normal palpation of the breasts and normal palpation of the axillae Resp Effort & Inspection: normal respiratory effort GI Inspection: Yes normal to inspection, No Abdominal wall edema and No distended Palpation (GI): Soft to palpation and nontender External Female Exam: normal external appearance Neuro General: patient oriented x3 Results Reviewed Results Reviewed: Name: Dionicio Lobato Age/Sex: 26/F Attending: Stephany Hoff CNM : 1995 Submitted by: Stephany Hoff CNM Copies to: Ady Cisneros MD MR #: [id number] Status: DEP REF Collected: 04/21/22 Location: [facility] Received: 04/21/22 Interpretation Satisfactory for evaluation. Negative for intraepithelial lesion or malignancy. Clinical Information LMP: 04/09/22 Previous PAP test: 10/27/21, WNL Material Received ThinPrep-Cervical Copies To Stephany Hoff CNM [address] [place] [address] [address]. [address] [place] [address] Ady Cisneros MD [address] [place] [address] Dr. [address] [place] [address] Electronically Signed By: Alexandria Fried 04/26/22 7989 The Pap Test is a screening procedure with the inherent possibility of both false negative and false positive results. Results should be interpreted in the context of historic and current clinical findings. Reliability of the Pap Test is enhanced by performing the test on a regular repetitive basis. Patient: Dionicio Lobato Age/Sex: 26/F MR#: [id number] Page 1 of 1 Assessment & Plan Assessment & Plan (1) Menometrorrhagia: Comment: emb- no atypia, managing well on ocps 04/21/22, and since... Code(s): N92.1 - Excessive and frequent menstruation with irregular cycle Category: Medical (2) Family history of diabetes mellitus (DM): Code(s): Z83.3 - Family history of diabetes mellitus Category: Medical (3) Counseling for control, oral contraceptives: Comment: Plus counseling for use of Mirena, secondary to elevated blood pressure; BP stable continuing on OCPs for now. Code(s): Z30.09 - Encounter for other general counseling and advice on contraception Category: Medical (4) Obesity, morbid, BMI 40.0-49.9: Comment: 04/21/22-making gradual changes, has lost some weight; has gained weight 2023. Is working on it.; 03/09/2025 started on the weight management program in January and is starting to see results. Code(s): E66.01 - Morbid (severe) obesity due to excess calories Category: Medical Plan 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 She is not really having any polysom tech concerns whatsoever and does not feel she even needs STI testing she did have sex with her boyfriend the summer but he used a condom and she has no concerns and she had been screened before that in their relationship. She is doing well on the pills with regular periods and she wants to stay on them. Her blood pressure here today is within normal limits 122 over 86. Sometimes it can be more elevated She has finally started on the weight management program she was waiting a long time for the referral to go through because of a wait list she is doing the protein shakes and keeping track of what she eats and working on the exercise portion of it as well. She feels it does give her some guidance about what to do. She was told that she would not qualify for insurance to pay for the GLP ones and she would have to pay [id number] for them and it would be 100s of dollars a month. She is not due for Pap smear as her last Pap smear was in 2022. -----Discussed in this visit the following: healthy balanced diet, regular and consistent exercise, getting recommended health screens, doing the best she can for her particular health concerns, kegel exercises, pap smear screening and followup recommendations, mammography screening and SBE, normal changes in cycles in her life stage--- . Congratulated on starting on her weight lost journey and she feels like she is starting to see some results already she does continue to watch her blood pressure at home though she says often it is higher at home than it is in the office. Reviewed use of the OCPs she would let us know if there were any elevated blood pressures. if it did become an issue, her next step would be a Mirena. Weight loss will help as well, in terms of. Management but she still would need a method of control.. Her boyfriend lives in [place] but they are talking about each visiting each other. Medications: Refilled desog-e.estradiol/e.estradiol 0.15-0.02 mgx21 /0.01 mg x 5 1 tab PO DAILY 84 tabs 4RF Coding Level of Care Code Est Pt Prev Care [id number]([id number]) Diagnoses Menometrorrhagia N92.1 Family history of diabetes mellitus (DM) Z83.3 Counseling for control, oral contraceptives Z30.09 Obesity, morbid, BMI 40.0-49.9 E66.01
[2025-03-09 15:12] VITALS: BP 122/86; BMI 47.9
== END 2025-03-12 11:01 | disposition home or self-care (01) ==
LOC: HO.HWSM 14:23
PROVIDERS: PCP Internal Medicine; Visit Provider Advanced Practice Midwife
DX: Z01.419 Encounter for gynecological examination (general) (routine) without abnormal findings (principal); N92.1 Excessive and frequent menstruation with irregular cycle; E66.01 Morbid (severe) obesity due to excess calories; Z68.42 Body mass index [BMI] 45.0-49.9, adult; Z83.3 Family history of diabetes mellitus; Z30.09 Encounter for other general counseling and advice on contraception
CPT/HCPCS: 99395